=== PATIENT | female | born 1975 | race Caucasian/White ===

== ENCOUNTER 2016-06-04 21:59 | Emergency (ER) | payer OTHER ==
[2016-06-04] MEDS ORDERED: SODIUM CHLORIDE 0.9% 1,000 ML IV ONE (23:28)
[2016-06-04] MEDS ORDERED: ACETAMINOPHEN TAB 325 MG TAB PO STA (23:29)
[2016-06-04 23:57] VITALS: RESP 16
[2016-06-05] LABS: Basophils % (A) 0 %; CH 32.1; CHCM 33.8; Eosinophils # (A) 0.1 k/uL (0-0.7); Eosinophils % (A) 1 %; HCT 48.6 % (34.0-46.0); HDW 2.34; HGB 16.2 gm/dL (11.4-16.0); Luc # (Auto) 0.17; Luc % (Auto) 2; Lymphocytes # (A) 1.4 k/uL (1.0-4.8); Lymphocytes % (A) 18 %; MCH 31.7 pg (25.0-35.0); MCHC 33.2 g/dL (31.0-37.0); MCV 95.3 fL (80.0-100.0); Mean Platelet Volume 6.1; Monocytes # (A) 0.2 k/uL (0-1.0); Monocytes % (A) 3 %; Neutrophils # (A) 5.8 k/uL (1.3-7.7); Neutrophils % (A) 75 %; RDW 13.5 % (11.5-15.5); WBC 7.7 k/uL (3.8-10.6); WBC (Perox) 7.66
[2016-06-05 00:09] LABS: Anion Gap 13 mmol/L; Blood Urea Nitrogen 13 mg/dL (7-17); Calcium 9.2 mg/dL (8.4-10.2); Carbon Dioxide 22 mmol/L (22-30); Chloride 107 mmol/L (98-107); Glucose 84 mg/dL (74-99); Non-African American GFR(MDRD) >60 (>60 ml/min/1.73 sqM); Potassium 4.1 mmol/L (3.5-5.1); Sodium 142 mmol/L (137-145)
--- NOTE | 2016-06-05 00:24 | ED ---
General Adult HPI - General Chief complaint: ENT Stated complaint: sore throat, chest pain Time Seen by Provider: 06/04/16 23:11 Source: patient Mode of arrival: ambulatory Limitations: no limitations - History of Present Illness Initial comments: 40-year-old female with past medical history of pneumonia and back surgery presented for evaluation of 3 days of sore throat, cough, and generalized myalgias. She states that she has sick contacts in the home and they had similar symptoms to what she is experiencing now. She states that the worst of her symptoms is her sore throat and describes it as a blistering sensation. She further states the cough is causing her to have some substernal chest pain with each cough. Chest pain is reproducible with coughing and palpation. There is also rhinorrhea and sinus congestion. She did not have her influenza vaccination this year. - Related Data Home Medications Medication Instructions Recorded Confirmed DULoxetine HCL [Cymbalta] 60 mg PO DAILY 12/16/14 06/04/16 HYDROcodone/APAP 10-325MG [[place] 1 each PO Q6H 12/16/14 06/04/16 10] lamoTRIgine [LaMICtal] 200 mg PO BID 12/16/14 06/04/16 Dextroamphetamine/Amphetamine 30 mg PO BID 12/29/14 06/04/16 [Adderall] hydrOXYzine PAMOATE [Vistaril] 50 mg PO BID 06/04/16 06/04/16 Previous Rx's Medication Instructions Recorded Azithromycin [Zithromax Z-pack] 250 mg PO DIRECTED #6 tab 06/05/16 Allergies Allergy/AdvReac Type Severity Reaction Status Date / Time methadone Allergy Rash/Hives Verified 06/04/16 22:13 Review of Systems ROS Statement: Those systems with pertinent positive or pertinent negative responses have been documented in the HPI. General: Patient denies fever, chills,nausea, or vomiting. HEENT: No visual changes. No eye pain. No dysphagia.positive odynophagia. Positive sinus congestion/pressure and rhinorrhea. Cardiac: No chest pain. No palpitations. Pulmonary; No dyspnea. Positive cough GI: No abdominal pain. No diarrhea. No constipation. No bowel habit changes. No melena. No hematochezia. See general. : No dysuria.No hematuria. No hesitancy. No urgency. No renal lithiasis history. Musculoskeletal: No musculoskeletal pain. Orthopedic: Denies fracture history. Integumentary: Denies rash. Denies pruritis. Neurologic: Denies any lateralizing weakness. Denies numbness. Denies tingling. No seizure activity. Denies TIA or CVA. Heme/Onc: Denies anemia. Denies cancer. Denies adenopathy. ROS Other: All systems not noted in ROS Statement are negative. Past Medical History Past Medical History: Pneumonia Additional Past Medical History / Comment(s): back, neck, rt hand pain- currently 3 herniated disc in neck History of Any Multi-Drug Resistant Organisms: MRSA Date of last positivie culture/infection: 06/28 MDRO Source:: face Past Surgical History: Back Surgery, Orthopedic Surgery Past Anesthesia/Blood Transfusion Reactions: No Reported Reaction Past Psychological History: ADD/ADHD Smoking Status: Current every day smoker Past Alcohol Use History: None Reported Past Drug Use History: None Reported - Past Family History Mother Family Medical History: No Reported History General Exam - General Exam Comments Initial Comments: General: The patient is awake and alert, in no distress, and does not appear acutely ill. Eye: Pupils are equal, round and reactive to light, extra-ocular movements are intact; there is normal conjunctiva bilaterally. No signs of icterus. Ears, nose, mouth and throat: There are moist mucous membranes and erythematous /raw oropharynx Neck: The neck is supple, without JVD but positive lymphadenopathy bilaterally Cardiovascular: There is a regular rate and rhythm. No murmur, rub or gallop is appreciated. Respiratory: Lungs are clear to auscultation, respirations are non-labored, breath sounds are equal. No wheezes, stridor, rales, or rhonchi. Gastrointestinal: Soft, non-distended, non-tender abdomen without masses or organomegaly noted. There is no rebound or guarding present. No CVA tenderness. Bowel sounds are unremarkable. Back: There is no tenderness to palpation in the midline. There is no obvious deformity. No rashes noted. Musculoskeletal: Normal ROM, no tenderness, There is no pedal edema. There is no calf tenderness or swelling. Sensation intact. Pulses equal bilaterally 2+. Neurological: CN II-XII intact, There are no obvious motor or sensory deficits. Coordination appears grossly intact. Speech is normal. Skin: Skin is warm and dry and no rashes or lesions are noted. Psychiatric: Cooperative, appropriate mood & affect, normal judgment. Limitations: no limitations Course Vital Signs 06/04/16 06/04/16 06/05/16 22:11 23:56 00:57 Temperature 100.3 F H 99.3 F 99.1 F Pulse Rate 121 H 92 91 Respiratory 22 16 16 Rate Blood Pressure 123/78 140/84 131/79 O2 Sat by Pulse 100 98 99 Oximetry EKG Findings - EKG Comments: EKG Findings:: EKG shows normal sinus rhythm with a ventricular rate of 95, SAYRA 134, QRS 82, QT/QTC 344/432 Medical Decision Making - Medical Decision Making 40-year-old female presented for evaluation of 3 days of URI symptoms , sore throat, and cough. She states that her son had similar symptoms recently with pneumonia and he is currently in the hospital on a ventilator. She believes this is causing her stress which is a likely contributor factor to her symptoms. Physical examination reveals an erythematous pharynx with tenderness to palpation of her sinuses but clear lung sounds bilaterally. Patient is mildly febrile. We'll provide antipyretic, obtain EKG, labs, chest x -ray. Labs revealed no significant abnormalities and checks x-ray showed possible chronic bronchitis without focal pneumonia. The patient was provided with a lidocaine mouthwash which she gargled and provided relief of her sore throat. She is informed that she would be discharged with instructions to follow-up with her primary care physician but return if her symptoms should worsen or persist she is further informed that she would be given a prescription for a Z- Bean which she should take as directed. She acknowledged an understanding of this information and agreed with this plan of care. - Lab Data Result diagrams: 06/04/16 23:45 06/04/16 23:45 Lab Results 06/04/16 06/04/16 06/04/16 Range/Units 23:45 23:45 23:45 WBC 7.7 (3.8-10.6) k/uL RBC 5.10 (3.80-5.40) m/uL Hgb 16.2 H (11.4-16.0) gm/dL Hct 48.6 H (34.0-46.0) % MCV 95.3 (80.0-100.0) fL MCH 31.7 (25.0-35.0) pg MCHC 33.2 (31.0-37.0) g/dL RDW 13.5 (11.5-15.5) % Plt Count 269 (150-450) k/uL Neutrophils % 75 % Lymphocytes % 18 % Monocytes % 3 % Eosinophils % 1 % Basophils % 0 % Neutrophils # 5.8 (1.3-7.7) k/uL Lymphocytes # 1.4 (1.0-4.8) k/uL Monocytes # 0.2 (0-1.0) k/uL Eosinophils # 0.1 (0-0.7) k/uL Basophils # 0.0 (0-0.2) k/uL Sodium 142 (137-145) mmol/L Potassium 4.1 (3.5-5.1) mmol/L Chloride 107 (98-107) mmol/L Carbon Dioxide 22 (22-30) mmol/L Anion Gap 13 mmol/L BUN 13 (7-17) mg/dL Creatinine 0.80 (0.52-1.04) mg/dL Est GFR (MDRD) Af Amer >60 (>60 ml/min/1.73 sqM) Est GFR (MDRD) Non-Af >60 (>60 ml/min/1.73 sqM) Glucose 84 (74-99) mg/dL Calcium 9.2 (8.4-10.2) mg/dL Influenza Type A RNA Not Detected (Not Detectd) Influenza Type B (PCR) Not Detected (Not Detectd) Group A Strep Rapid (Negative) 06/04/16 Range/Units 23:45 WBC (3.8-10.6) k/uL RBC (3.80-5.40) m/uL Hgb (11.4-16.0) gm/dL Hct (34.0-46.0) % MCV (80.0-100.0) fL MCH (25.0-35.0) pg MCHC (31.0-37.0) g/dL RDW (11.5-15.5) % Plt Count (150-450) k/uL Neutrophils % % Lymphocytes % % Monocytes % % Eosinophils % % Basophils % % Neutrophils # (1.3-7.7) k/uL Lymphocytes # (1.0-4.8) k/uL Monocytes # (0-1.0) k/uL Eosinophils # (0-0.7) k/uL Basophils # (0-0.2) k/uL Sodium (137-145) mmol/L Potassium (3.5-5.1) mmol/L Chloride (98-107) mmol/L Carbon Dioxide (22-30) mmol/L Anion Gap mmol/L BUN (7-17) mg/dL Creatinine (0.52-1.04) mg/dL Est GFR (MDRD) Af Amer (>60 ml/min/1.73 sqM) Est GFR (MDRD) Non-Af (>60 ml/min/1.73 sqM) Glucose (74-99) mg/dL Calcium (8.4-10.2) mg/dL Influenza Type A RNA (Not Detectd) Influenza Type B (PCR) (Not Detectd) Group A Strep Rapid Negative (Negative) Disposition Clinical Impression: Acute viral pharyngitis, Bronchitis Disposition: HOME SELF-CARE Condition: Stable Instructions: Pharyngitis (ED), Acute Bronchitis (ED) Additional Instructions: Please use medication as discussed. Please follow up with family doctor if symptoms have not improved over the next two days. Please return to the emergency room if your symptoms increase or worsen or for any other concerns. Prescriptions: Azithromycin [Zithromax Z-pack] 250 mg PO DIRECTED #6 tab Time of Disposition: 01:30
--- NOTE | 2016-06-05 00:26 | XR ---
EXAMINATION TYPE: XR chest 2V DATE OF EXAM: 06/05/2016 12:02 AM COMPARISON: NONE HISTORY: Sore throat and cough TECHNIQUE: Frontal and lateral views of the chest are obtained. FINDINGS: Mild peribronchial cuffing is suggested with possible chronic bronchitis changes. There is no focal air space opacity, pleural effusion, or pneumothorax seen. The cardiac silhouette size is within normal limits. The osseous structures are intact. IMPRESSION: 1. Possible chronic bronchitis. 2. No focal pneumonia.
[2016-06-05] MEDS ORDERED: MAG HYDROX/AL HYDROX/SIMETH 30 ML, HYOSCYAMINE ELIXIR 10 ML, CIMETIDINE HCL 300 MG, LID... PO STA ×4 (00:38)
[2016-06-05 00:58] VITALS: BP 131/79; PULSE 91; TEMP 99.1
[2016-06-05] MEDS ORDERED: DEXAMETHASONE SOD PHOSPHATE 10 MG/ML 1 ML VIAL IV STA (01:09)
== END 2016-06-05 01:53 | disposition home or self-care (01) ==
LOC: EC 21:59
DX: J02.8 Acute pharyngitis due to other specified organisms (principal); J40 Bronchitis, not specified as acute or chronic; Z79.899 Other long term (current) drug therapy; Z88.5 Allergy status to narcotic agent; F90.9 Attention-deficit hyperactivity disorder, unspecified type; M50.20 Other cervical disc displacement, unspecified cervical region; F17.200 Nicotine dependence, unspecified, uncomplicated; B97.89 Other viral agents as the cause of diseases classified elsewhere
CPT/HCPCS: 36415; 93005; 80048; 85025; 87081; 87430; 87502; 71020; 96374; 96361 ×2; 99283; J1100